=== PATIENT | female | born 1950 | race Caucasian/White ===

== ENCOUNTER 2018-02-02 09:05 | Outpatient (CLI) | payer MEDICARE ==
--- NOTE | 2018-02-02 13:10 | CT ---
CT ABDOMEN WITH AND WITHOUT IV CONTRAST: Date: 02/02/18 HISTORY: Elevated liver enzymes. FINDINGS: The lung bases are clear. There is diffusely decreased attenuation of the liver compared to the spleen consistent with fatty in filtration. There is an approximately 2.0 cm low density lesion in the left lobe of the liver without abnormal postcontrast enhancement, likely cyst. The spleen, pancreas, adrenal glands, and kidneys ar e normal. The patient is post cholecystectomy. No free air, free fluid, or lymphadenopathy seen. Ther e are vascular calcifications without evidence of aneurysmal dilatation of the abdominal aorta. The s mall bowel loops are not abnormally dilated. There are degenerative changes in the spine. IMPRESSION: 1. Fatty liver. 2. Probable liver cyst. POS: MIL
== END 2018-02-02 09:06 | disposition home or self-care (01) ==
LOC: BICCT 09:05
PROVIDERS: ATTEND Internal Medicine Gastroenterology
DX: K21.9 Gastro-esophageal reflux disease without esophagitis (principal); R74.8 Abnormal levels of other serum enzymes; R16.0 Hepatomegaly, not elsewhere classified; R19.4 Change in bowel habit; R06.02 Shortness of breath; F10.20 Alcohol dependence, uncomplicated; K76.0 Fatty (change of) liver, not elsewhere classified; Z86.010 Personal history of colon polyps
CPT/HCPCS: 74170